=== PATIENT | female | born 1955 | race Caucasian/White ===

== ENCOUNTER → 2021-05-01 | Outpatient (CLI) | payer OTHER ==
[~2021-05-01] MED LIST: CELEBREX 200MG200 MG PO; GABAPENTIN300 MG PO; GLUCOPHAGE1000 MG PO; PRINIVIL10 MG PO; STOOL SOFTENER100 MG PO; SYNTHROID150 MCG PO; TRESIBA FL100 UNIT/1 SQ; TRULICITY0.75 MG/0. SQ; XANAX 0.25 MG0.25 MG PO; ZOCOR40 MG PO; ZYVOX600 MG PO
== END ==
LOC: OPSV 04-25 08:30 → NM 04-25 13:00 → EXRD 04-26 08:00 → NM 09:00 → EXRD 09:45 → NM 13:00
DX: R10.13 Epigastric pain (principal)
CPT/HCPCS: 78264; A9541

== ENCOUNTER → 2021-05-04 | Outpatient (CLI) | payer OTHER | LOC: OPSV 04-25 08:30 → HEART 5 04-25 08:30 | DX: R10.13 Epigastric pain (principal) | CPT/HCPCS: 76705 ==

== ENCOUNTER 2021-11-28 15:16 | Inpatient (IN) | payer OTHER ==
[~2021-11-28] VITALS: Ht 165.1 cm; Wt 77.6 kg
[~2021-11-28 15:16] MED LIST changes: -GLUCOPHAGE1000 MG PO; +LISINOPRIL20 MG PO; +METFORMIN HCL1000 MG PO; -PRINIVIL10 MG PO; +SYNTHROID137 MCG PO; -SYNTHROID150 MCG PO
[2021-11-28 15:51] LABS: HEMOGLOBIN 15.4 gm/dl (12.3-15.3); RED BLOOD COUNT 5.16 M/UL (4.00-5.10); WHITE BLOOD COUNT 19.1 K/UL (4.5-11.0)
[2021-11-28 21:37] LABS: HEMOGLOBIN 13.8 gm/dl (12.3-15.3); RED BLOOD COUNT 4.69 M/UL (4.00-5.10); WHITE BLOOD COUNT 18.1 K/UL (4.5-11.0)
[2021-11-29 04:08] LABS: HEMOGLOBIN 13.5 gm/dl (12.3-15.3); RED BLOOD COUNT 4.69 M/UL (4.00-5.10); WHITE BLOOD COUNT 18.1 K/UL (4.5-11.0)
[2021-11-29] MEDS ORDERED: LASIX20 MG PO (14:27)
[2021-11-29] MEDS ORDERED: LINZESS290 MCG PO (14:27)
[2021-11-29] MEDS ORDERED: OMEPRAZOLE20 MG PO (14:29)
[2021-11-29] MEDS ORDERED: REGLAN10 MG PO ×2 (14:30)
[2021-11-29] MEDS ORDERED: JARDIANCE10 MG PO (14:38)
[2021-11-29] MEDS ORDERED: CARVEDILOL6.25 MG PO (14:38)
[2021-11-29] MEDS ORDERED: CRESTOR20 MG PO (14:39)
[2021-11-29 15:03] LABS: BUN/CREATININE RATIO 36 (0-10)
[2021-11-29 19:26] LABS: BUN/CREATININE RATIO 35 (0-10)
[2021-11-29 22:31] LABS: BUN/CREATININE RATIO 32 (0-10)
[2021-11-30 05:15] LABS: HEMOGLOBIN 10.9 gm/dl (12.3-15.3); RED BLOOD COUNT 3.77 M/UL (4.00-5.10); WHITE BLOOD COUNT 6.6 K/UL (4.5-11.0)
[2021-11-30 05:47] LABS: BUN/CREATININE RATIO 27 (0-10)
[2021-12-01 03:37] LABS: RED BLOOD COUNT 3.8 M/UL (4.00-5.10); WHITE BLOOD COUNT 5.2 K/UL (4.5-11.0)
[2021-12-01 04:17] LABS: BUN/CREATININE RATIO 23 (0-10)
[2021-12-01] MEDS ORDERED: NOVOLOG FL100 UNIT/1 INJ (13:07)
[2021-12-01] MEDS ORDERED: LANTUS SOL100 UNIT/1 SQ (13:07)
[2021-12-01] MEDS ORDERED: AMOX TR-K CLV1 EAC4 PO (13:09)
== END 2021-12-01 14:30 | disposition home or self-care (01) | DRG 438 ==
LOC: ER1 15:16 → CDU 18:00 → MED SURG 4 18:00 → CCU 22:50 → MED SURG 4 11-30 22:21
PROVIDERS: ADMIT Internal Medicine
DX: K85.90 Acute pancreatitis without necrosis or infection, unspecified (principal); E11.10 Type 2 diabetes mellitus with ketoacidosis without coma; J18.9 Pneumonia, unspecified organism; U07.1 COVID-19; N17.9 Acute kidney failure, unspecified; E86.0 Dehydration; E87.5 Hyperkalemia; E11.40 Type 2 diabetes mellitus with diabetic neuropathy, unspecified; E87.6 Hypokalemia; K21.9 Gastro-esophageal reflux disease without esophagitis; R51.9 Headache, unspecified; E07.9 Disorder of thyroid, unspecified; E78.5 Hyperlipidemia, unspecified; I10 Essential (primary) hypertension; Z79.899 Other long term (current) drug therapy; Z87.891 Personal history of nicotine dependence; Z90.710 Acquired absence of both cervix and uterus; Z85.828 Personal history of other malignant neoplasm of skin; Z79.4 Long term (current) use of insulin
CPT/HCPCS: 36415; 36600; 70450; 71045; 80048; 80053; 81001; 81003; 82009; 82550; 82553; 82803; 82962; 83036; 83605; 83690; 83735; 84100; 84484; 85025; 87040; 87338; 93005; 96361; 96374; 96375; 96376; 99285; C9113; J0692; J2405; J7030; Q9967; U0002

== ENCOUNTER → 2021-12-07 | Outpatient (CLI) | payer OTHER ==
[~2021-12-07] MED LIST changes: +AMOX TR-K CLV1 EAC4 PO; +CARVEDILOL6.25 MG PO; +CRESTOR20 MG PO; +JARDIANCE10 MG PO; +LANTUS SOL100 UNIT/1 SQ; +LASIX20 MG PO; +LINZESS290 MCG PO; +NOVOLOG FL100 UNIT/1 INJ; +OMEPRAZOLE20 MG PO; +REGLAN10 MG PO
== END ==
LOC: US 13:47
DX: R20.0 Anesthesia of skin (principal); R60.9 Edema, unspecified
CPT/HCPCS: 93971